=== PATIENT | female | born 1960 | race African-American/Black ===

== ENCOUNTER 2020-11-25 15:23 | Observation (INO) ==
[2020-11-25] MEDS ORDERED: SIMETHICONE CHEW 125 MG TABLET PO PRN (15:32)
[2020-11-25] MEDS ORDERED: MAGNESIUM SULF RIDER 2 GM/50 ML PREMIX IV PRN (15:32)
[2020-11-25] MEDS ORDERED: MORPHINE 2 MG/1 ML SYRINGE IV PRN (15:32)
[2020-11-25] MEDS ORDERED: guaiFENesin/DM ER 600-30 MG TABLET PO PRN (15:32)
[2020-11-25] MEDS ORDERED: BISACODYL 5 MG TABLET PO PRN (15:32)
[2020-11-25] MEDS ORDERED: hydrALAZINE 20 MG/1 ML VIAL IV PRN (15:32)
[2020-11-25] MEDS ORDERED: ALUMINUM/MAGNES/SIMETH MAX STR 30 ML UDCUP PO PRN (15:32)
[2020-11-25] MEDS ORDERED: CALCIUM CARBONATE CHEW 500 MG TABLET PO PRN (15:32)
[2020-11-25] MEDS ORDERED: POTASSIUM CHLORIDE 20 MEQ TABLET PO PRN (15:32)
[2020-11-25] MEDS ORDERED: LACTULOSE 20 GM/30 ML UDCUP PO PRN (15:32)
[2020-11-25] MEDS ORDERED: MAGNESIUM SULF RIDER 4 GM/100 ML PREMIX IV PRN (15:32)
[2020-11-25] MEDS ORDERED: ONDANSETRON 4 MG/2 ML VIAL IV PRN (15:32)
[2020-11-25] MEDS ORDERED: DEXTROSE 50% 25 GM/50 ML VIAL IV PRN (16:40)
[2020-11-25] MEDS ORDERED: GLUCAGON 1 MG VIAL IM PRN (16:40)
[2020-11-25 17:24] LABS: Basophils # 0.1 10*3/uL (0.0-0.2); Basophils % 1.7 % (0.0-0.8); Eosinophils % 0.5 % (0.00-10.9); Hematocrit 47.8 VOL% (35.7-47.0); Hemoglobin 16.1 GM/DL (12.0-16.0); Immature Granulocytes % 0.2 %; Immature Granulocytes Absolute 0.01 #; Lymphocytes # 2.7 10*3/uL (1.4-4.0); Lymphocytes % 42.7 % (21.3-54.2); Mean Corpuscular HGB Conc 33.7 GM/DL (32-36); Mean Corpuscular Volume 89.8 FL (87-102); Mean Platelet Volume 10.1 FL (9.6-12.0); Monocytes % 9.7 % (1.7-12.7); Neutrophils % 45.2 % (38.7-73.9); Platelet Count 342 T/CUMM (130-400); Red Blood Count 5.32 MC/CUMM (3.8-5.5); Red Cell Distribution Width 12.6 % (9.3-17.3); White Blood Count 6.4 T/CUMM (4-12)
[2020-11-25 17:42] LABS: Bilirubin,Total 0.6 MG/DL (0.20-1.00); Calcium 10.2 MG/DL (8.5-10.1); Osmolality,Calculated 271.8 MOS/KG (273-304); Potassium 4.5 MMOL/L (3.5-5.1)
[2020-11-25 17:47] LABS: Thyroid Stimulating Hormone 0.877 uIU/ml (0.358-3.74)
[2020-11-25] MEDS: INSULIN LISPRO 100 UNIT/ML SUBCUT SCH (20:24)
[2020-11-26 04:58] LABS: Basophils # 0.1 10*3/uL (0.0-0.2); Basophils % 1.4 % (0.0-0.8); Eosinophils # 0.1 10*3/uL (0.0-0.87); Eosinophils % 1.5 % (0.00-10.9); Hemoglobin 15.6 GM/DL (12.0-16.0); Immature Granulocytes % 0.1 %; Immature Granulocytes Absolute 0.01 #; Lymphocytes # 3.6 10*3/uL (1.4-4.0); Mean Corpuscular HGB Conc 33.2 GM/DL (32-36); Mean Corpuscular Volume 90.4 FL (87-102); Mean Platelet Volume 10.2 FL (9.6-12.0); Monocytes % 9.5 % (1.7-12.7); Neutrophils % 38.5 % (38.7-73.9); Platelet Count 340 T/CUMM (130-400); Red Cell Distribution Width 12.5 % (9.3-17.3); White Blood Count 7.2 T/CUMM (4-12)
[2020-11-26 05:21] LABS: Eosinophils 1 % (0-10); Lymphocytes 45 % (20-55); Platelet Estimate Adequate; Segmented Neutrophils 45 % (50-85); Total Cells Counted 100
[2020-11-26 05:32] LABS: Calcium 9.9 MG/DL (8.5-10.1); Osmolality,Calculated 281.8 MOS/KG (273-304); Potassium 3.9 MMOL/L (3.5-5.1); Risk Ratio 4.15; VLDL Cholesterol 31.8 MG/DL
[2020-11-26] MEDS ORDERED: PREGABALIN 75 MG CAPSULE PO PRN (07:12)
[2020-11-26] MEDS ORDERED: ASPIRIN CHEW 81 MG TABLET PO ONE (07:52)
[2020-11-26] MEDS ORDERED: SODIUM CHLORIDE 0.9% 1,000 ML IV SCH (08:00)
[2020-11-26] MEDS: METOPROLOL TARTRATE 25 MG TABLET PO SCH ×2 (08:27→21:08)
[2020-11-26] MEDS: amLODIPine 5 MG TABLET PO SCH (08:28)
[2020-11-26] MEDS: PANTOPRAZOLE 40 MG TABLET PO SCH (08:28)
[2020-11-26] MEDS: INSULIN LISPRO 100 UNIT/ML SUBCUT SCH ×4 (08:28→21:08)
[2020-11-26] MEDS: FLUCONAZOLE 100 MG TABLET PO SCH (08:28)
[2020-11-26] MEDS: DULoxetine 30 MG CAPSULE PO SCH ×2 (08:28→21:07)
[2020-11-26] MEDS: POTASSIUM CHLORIDE 10 MEQ TABLET PO SCH (08:28)
[2020-11-26] MEDS: TRIAMTERENE/HCTZ 75-50 MG TABLET PO SCH (09:22)
[2020-11-26] MEDS: NITROGLYCERIN 2% OINT 1 INCH/GM PACK TOP SCH ×2 (09:38→12:45)
[2020-11-26] MEDS: glipiZIDE 10 MG TABLET PO SCH ×2 (10:16→21:07)
[2020-11-26] MEDS: ACETAMINOPHEN 325 MG TABLET PO PRN (11:14)
[2020-11-26] MEDS ORDERED: diphenhydrAMINE CAP 50 MG CAPSULE PO ONE (12:30)
[2020-11-26] MEDS ORDERED: DIAZEPAM 5 MG TABLET PO ONE (12:30)
[2020-11-26] MEDS ORDERED: NITROGLYCERIN DRIP 50 MG/250 ML BOTTLE IV ONE (12:47)
[2020-11-26] MEDS ORDERED: HEPARIN/NACL 0.9% 2 UNITS/ML 2,000 UNIT/1,000 ML BAG IV ONE (12:47)
[2020-11-26] MEDS ORDERED: VERAPAMIL 5 MG/2 ML VIAL ONE (12:47)
[2020-11-26] MEDS ORDERED: LIDOCAINE 1% 20 ML VIAL ONE (12:47)
[2020-11-26] MEDS ORDERED: HYDROmorphone 2 MG/1 ML VIAL ONE (14:51)
[2020-11-26] MEDS ORDERED: MIDAZOLAM 2 MG/2 ML VIAL ONE (14:52)
[2020-11-26] MEDS ORDERED: ENOXAPARIN 30 MG/0.3 ML SYRINGE ONE (15:04)
[2020-11-26] MEDS ORDERED: DEXTROSE 50% 25 GM/50 ML VIAL IV PRN (15:15)
[2020-11-26] MEDS: CLINDAMYCIN 150 MG CAPSULE PO SCH ×2 (17:17→21:10)
[2020-11-26] MEDS ORDERED: INSULIN GLARGINE 100 UNIT/ML SUBCUT SCH (21:00)
[2020-11-26] MEDS ORDERED: EZETIMIBE 10 MG TABLET PO SCH (21:00)
[2020-11-27 05:01] LABS: Basophils # 0.1 10*3/uL (0.0-0.2); Basophils % 1.8 % (0.0-0.8); Eosinophils # 0.1 10*3/uL (0.0-0.87); Eosinophils % 1.8 % (0.00-10.9); Hematocrit 44.9 VOL% (35.7-47.0); Hemoglobin 14.8 GM/DL (12.0-16.0); Immature Granulocytes % 0.2 %; Immature Granulocytes Absolute 0.01 #; Lymphocytes # 2.7 10*3/uL (1.4-4.0); Lymphocytes % 48.3 % (21.3-54.2); Mean Corpuscular Volume 91.1 FL (87-102); Mean Platelet Volume 10.5 FL (9.6-12.0); Monocytes % 13.8 % (1.7-12.7); Neutrophils % 34.1 % (38.7-73.9); Platelet Count 338 T/CUMM (130-400); Red Blood Count 4.93 MC/CUMM (3.8-5.5); Red Cell Distribution Width 12.5 % (9.3-17.3); White Blood Count 5.7 T/CUMM (4-12)
[2020-11-27 05:25] LABS: Hypochromasia Slight; Lymphocytes 50 % (20-55); Microcytosis Slight; Platelet Estimate Adequate; Segmented Neutrophils 34 % (50-85); Total Cells Counted 100
[2020-11-27 05:39] LABS: Calcium 9.8 MG/DL (8.5-10.1); Osmolality,Calculated 279.8 MOS/KG (273-304); Potassium 4.2 MMOL/L (3.5-5.1)
[2020-11-27] MEDS: CLINDAMYCIN 150 MG CAPSULE PO SCH (05:49)
[2020-11-27 08:22] VITALS: BP 127/75
[2020-11-27] MEDS: ACETAMINOPHEN 325 MG TABLET PO PRN (08:55)
[2020-11-27] MEDS: DULoxetine 30 MG CAPSULE PO SCH (08:55)
[2020-11-27] MEDS: METOPROLOL TARTRATE 25 MG TABLET PO SCH (08:55)
[2020-11-27] MEDS: FLUCONAZOLE 100 MG TABLET PO SCH (08:55)
[2020-11-27] MEDS: POTASSIUM CHLORIDE 10 MEQ TABLET PO SCH (08:55)
[2020-11-27] MEDS: glipiZIDE 10 MG TABLET PO SCH (08:56)
[2020-11-27] MEDS: TRIAMTERENE/HCTZ 75-50 MG TABLET PO SCH (08:56)
[2020-11-27] MEDS: amLODIPine 5 MG TABLET PO SCH (08:56)
[2020-11-27] MEDS: INSULIN LISPRO 100 UNIT/ML SUBCUT SCH (08:56)
[2020-11-27] MEDS: PANTOPRAZOLE 40 MG TABLET PO SCH (08:56)
== END 2020-11-27 11:28 | disposition home or self-care (01) ==
LOC: N.TELES
PROVIDERS: ADMIT Internal Medicine Cardiovascular Disease; ATTEND Internal Medicine Cardiovascular Disease
PROC: CLCCHCL (ICD-10-PCS; 2020-11-26 13:45)